=== PATIENT | female | born 1990 | race Caucasian/White ===

== ENCOUNTER 2018-02-07 21:37 | Inpatient (IN) | payer OTHER ==
[~2018-02-07] VITALS: Ht 170.2 cm; Wt 0.5 kg
[2018-02-07] MEDS ORDERED: PRENATAL TABLE1 EACH PO (22:14)
== END 2018-04-01 09:33 | disposition home or self-care (01) | DRG 786 ==
LOC: OBS/DEL 21:37 → OB/GYN 02-08 08:37 → OBS/DEL 02-08 08:37 → LDR 02-08 08:37 → OB/GYN 02-10 08:30 → LDR 03-08 10:33 → OB/GYN 03-29 22:15
PROVIDERS: Obstetrics & Gynecology
PROC: 4A1HXCZ Monitoring of Products of Conception, Cardiac Rate, External Approach (ICD-10-PCS; 2018-02-08)
PROC: BU4CZZZ Ultrasonography of Uterus and Ovaries (ICD-10-PCS; 2018-02-12)
PROC: BY4DZZZ Ultrasonography of Second Trimester, Multiple Gestation (ICD-10-PCS; 2018-02-23)
PROC: BU4CZZZ Ultrasonography of Uterus and Ovaries (ICD-10-PCS; 2018-02-27)
PROC: BY4DZZZ Ultrasonography of Second Trimester, Multiple Gestation (ICD-10-PCS; 2018-03-11)
PROC: 0UVC7ZZ Restriction of Cervix, Via Natural or Artificial Opening (ICD-10-PCS; 2018-03-13)
PROC: BY4DZZZ Ultrasonography of Second Trimester, Multiple Gestation (ICD-10-PCS; 2018-03-21)
PROC: BY4DZZZ Ultrasonography of Second Trimester, Multiple Gestation (ICD-10-PCS; 2018-03-28)
PROC: 4A033R1 Measurement of Arterial Saturation, Peripheral, Percutaneous Approach (ICD-10-PCS; 2018-03-29)
PROC: 10D00Z1 Extraction of Products of Conception, Low, Open Approach (ICD-10-PCS; principal; 2018-03-29 19:00)
DX: O32.2XX1 Maternal care for transverse and oblique lie, fetus 1 (principal); O34.32 Maternal care for cervical incompetence, second trimester; O23.32 Infections of other parts of urinary tract in pregnancy, second trimester; O26.872 Cervical shortening, second trimester; O32.8XX1 Maternal care for other malpresentation of fetus, fetus 1; O30.042 Twin pregnancy, dichorionic/diamniotic, second trimester; O46.8X2 Other antepartum hemorrhage, second trimester; Z37.2 Twins, both liveborn; Z3A.26 26 weeks gestation of pregnancy